=== PATIENT | male | born 1970 | race Caucasian/White ===

== ENCOUNTER 2018-10-14 20:37 | Inpatient (IN) | payer MEDICAID ==
[~2018-10-14] VITALS: Ht 177.8 cm; Wt 103.6 kg
[2018-10-14 22:11] LABS: CHLORIDE 86 mEq/L (98-107); HEMATOCRIT. 35.1 % (42.0-52.0); HEMOGLOBIN. 12.3 g/dL (14.0-18.0); MEAN CORPUSCULAR HEMOGLOBIN 36.2 pg (28.0-32.0); MEAN CORPUSCULAR VOLUME 103.1 fL (80.0-94.0); MEAN PLATELET VOLUME 9.4 fl (7.4-10.4); PLATELET 56 x1000/uL (130-400)
[2018-10-14 22:27] LABS: PLATELET ESTIMATE MARKEDLY DECREASED
[2018-10-14] MEDS ORDERED: POTASSIUM CHLORIDE 20MEQ TABLET SR PO ONE (23:00)
[2018-10-14] MEDS ORDERED: KCL 20MEQ/100ML PREMIX 100 ML IV ONE (23:00)
[2018-10-14] MEDS ORDERED: ASPIRIN 325MG EC TABLET PO ONE (23:45)
[2018-10-14] MEDS ORDERED: LORAZEPAM 2MG/ML CPJ IV ONE (23:45)
[2018-10-14] MEDS ORDERED: CHLORDIAZEPOXIDE 25MG CAPSULE PO ONE (23:45)
[2018-10-15] MEDS ORDERED: HYDRALAZINE 20MG/ML VIAL IV PRN
[2018-10-15] MEDS ORDERED: DOCUSATE SODIUM 100MG CAPSULE PO PRN
[2018-10-15] MEDS ORDERED: MAGNESIUM/ALUMINUM HYDROXIDE/SIMETHICONE 30ML UDC PO PRN
[2018-10-15] MEDS ORDERED: ACETAMINOPHEN 325MG TABLET PO PRN
[2018-10-15] MEDS ORDERED: ENOXAPARIN 40MG/0.4ML SYR SUBCUT SCH
[2018-10-15] MEDS ORDERED: HYDROCODONE/ACETAMINOPHEN 10/325MG TABLET PO PRN
[2018-10-15] MEDS ORDERED: ONDANSETRON HCL 4MG/2ML INJ IV PRN
[2018-10-15] MEDS ORDERED: CLONIDINE 0.1MG TABLET PO PRN
[2018-10-15] MEDS ORDERED: LORAZEPAM 2MG/ML CPJ IV PRN
[2018-10-15] MEDS ORDERED: GUAIFENESIN 200MG/10ML SUGAR FREE UDC PO PRN
[2018-10-15] MEDS ORDERED: HYDROMORPHONE HCL/PF 2MG/ML CPJ IV PRN
[2018-10-15] MEDS ORDERED: DIPHENHYDRAMINE 50MG/ML VIAL IV PRN
[2018-10-15] MEDS ORDERED: IPRATROPIUM/ALBUTEROL 0.5-3(2.5)MG/3ML NEB INH PRN
[2018-10-15 03:00] VITALS: BP 114/73
[2018-10-15] MEDS ORDERED: ATOR20TA PO (04:03)
[2018-10-15] MEDS ORDERED: HYDR25TA PO (04:03)
[2018-10-15] MEDS ORDERED: ASPI-1159 PO (04:03)
[2018-10-15] MEDS: SODIUM CHLORIDE 0.9% INJ 3ML FLUSH IVF SCH ×3 (06:17→22:24)
[2018-10-15 06:57] LABS: CHLORIDE 92 mEq/L (98-107)
[2018-10-15 07:14] LABS: HDL CHOLESTEROL 10 mg/dL (40-59)
[2018-10-15 07:15] LABS: LDL CHOLESTEROL 164 mg/dL (5-100)
[2018-10-15 07:17] LABS: CREATINE KINASE 725 IU/L (39-308); T4 FREE 1.43 ng/dL (0.76-1.46)
[2018-10-15 07:21] LABS: HEMOGLOBIN. 11.8 g/dL (14.0-18.0); MEAN CORPUSCULAR HEMOGLOBIN 36.8 pg (28.0-32.0); MEAN CORPUSCULAR VOLUME 103.1 fL (80.0-94.0); MEAN PLATELET VOLUME 9.4 fl (7.4-10.4); PLATELET 53 x1000/uL (130-400); RED CELL DISTRIBUTION WIDTH 17.3 % (11.6-14.6)
[2018-10-15 07:26] LABS: CREATINE KINASE MB FRACTION 4.7 ng/mL (0.5-3.6)
[2018-10-15 08:00] VITALS: BP 133/80
[2018-10-15] MEDS ORDERED: POTASSIUM CHLORIDE 20MEQ TABLET SR PO NR (08:45)
[2018-10-15] MEDS ORDERED: ENOXAPARIN 30MG/0.3ML SYR SUBCUT SCH (09:00)
[2018-10-15] MEDS: ASPIRIN 81MG EC TABLET PO SCH (09:57)
[2018-10-15] MEDS: SODIUM CHLORIDE 0.45% 1,000 ML IV SCH ×2 (09:57→23:16)
[2018-10-15] MEDS: LORAZEPAM 2MG/ML CPJ IV PRN ×3 (09:58→23:13)
[2018-10-15] MEDS ORDERED: NON FORMULARY PATIENT HOME MED XX SCH (13:30)
[2018-10-15 13:57] LABS: PLATELET ESTIMATE DECREASED
[2018-10-15 15:54] LABS: T4 FREE 1.41 ng/dL (0.76-1.46)
[2018-10-15 15:54] LABS: CREATINE KINASE 614 IU/L (39-308)
[2018-10-15 16:00] VITALS: BP 137/87
[2018-10-15 20:00] VITALS: BP 134/84
[2018-10-15] MEDS ORDERED: ATORVASTATIN CALCIUM 20MG TABLET PO SCH (21:00)
[2018-10-15 23:38] LABS: CANNABINOID URINE SCREEN PRESUMTIVE POSITIVE (NEGATIVE); METHADONE URINE SCREEN NEGATIVE (NEGATIVE); OPIATES URINE SCREEN NEGATIVE (NEGATIVE); PHENCYCLIDINE URINE SCREEN NEGATIVE (NEGATIVE)
[2018-10-15 23:39] LABS: *AMPHETAMINES SCREEN URINE NEGATIVE (NEGATIVE); *BARBITURATES SCREEN URINE NEGATIVE (NEGATIVE); *BENZODIAZEPINES SCREEN URINE PRESUMTIVE POSITIVE (NEGATIVE); *COCAINE SCREEN URINE NEGATIVE (NEGATIVE)
[2018-10-16] VITALS: BP 142/84
[2018-10-16 04:00] VITALS: BP 128/78
[2018-10-16] MEDS: SODIUM CHLORIDE 0.9% INJ 3ML FLUSH IVF SCH ×2 (06:44→12:53)
[2018-10-16 08:00] VITALS: BP 126/77
[2018-10-16] MEDS: ASPIRIN 81MG EC TABLET PO SCH (08:48)
[2018-10-16] MEDS: SODIUM CHLORIDE 0.45% 1,000 ML IV SCH (11:29)
[2018-10-16] MEDS: LORAZEPAM 2MG/ML CPJ IV PRN (12:52)
[2018-10-16 13:29] VITALS: BP 152/88
[2018-10-16] MEDS ORDERED: POTASSIUM CHLORIDE 20MEQ TABLET SR PO SCH (13:30)
== END 2018-10-16 14:00 | disposition home or self-care (01) | DRG 203 ==
LOC: EDBD 20:37 → ER 20:37 → 5WST 23:39 → EDBEDREQTM 23:40 → EDBEDREQ 23:40 → ENRESERV 10-15 01:56
PROVIDERS: ADMIT Internal Medicine; ATTEND Internal Medicine
DX: M94.0 Chondrocostal junction syndrome [Tietze] (principal); E87.8 Other disorders of electrolyte and fluid balance, not elsewhere classified; E44.0 Moderate protein-calorie malnutrition; I11.0 Hypertensive heart disease with heart failure; I50.9 Heart failure, unspecified; R17 Unspecified jaundice; E87.1 Hypo-osmolality and hyponatremia; E83.51 Hypocalcemia; E87.6 Hypokalemia; Z95.1 Presence of aortocoronary bypass graft; I25.10 Atherosclerotic heart disease of native coronary artery without angina pectoris; I25.2 Old myocardial infarction; Z79.82 Long term (current) use of aspirin
CPT/HCPCS: 36415; 71045; 76705; 80061; 80305; 82550; 82553; 83036; 83880; 84132; 84439; 84443; 84484; 85379; 93005; 93306; 93970; 96374; 96375; 99285; J2060; J2405; J3480